=== PATIENT | female | born 1995 | race Caucasian/White ===

== ENCOUNTER 2020-03-29 04:53 | Day surgery (SDC) | payer OTHER ==
[2020-03-28 14:46] VITALS: BMI 31.6
[2020-03-29] MEDS ORDERED: PROPOFOL 20 ML ONE ×2 (12:10→13:41)
[2020-03-29] MEDS ORDERED: MIDAZOLAM HCL 2 MG/2 ML SINGLE DOSE VIAL ONE (12:10)
[2020-03-29] MEDS ORDERED: LIDOCAINE HCL 1%, 10 MG/ML (20ML VIAL) ONE (12:58)
[2020-03-29] MEDS ORDERED: ceFAZolin 2 GRAM PREMIX BAG IVPB ONE ×2 (13:18→13:24)
[2020-03-29] MEDS ORDERED: oxyCODONE HCL 5 MG TABLET PO PRN (13:27)
[2020-03-29] MEDS ORDERED: ONDANSETRON 4 MG/2 ML VIAL IVPUSH PRN (13:27)
[2020-03-29] MEDS ORDERED: LACTATED RINGERS SOLUTION 1,000 ML IV SCH (13:30)
[2020-03-29] MEDS ORDERED: DEXAMETHASONE SOD PHOSPHATE 4 MG/1 ML VIAL ONE (13:31)
[2020-03-29] MEDS ORDERED: ceFAZolin SODIUM 1 GM VIAL ONE (13:31)
[2020-03-29 16:16] VITALS: PULSE 72
[2020-03-29 18:09] VITALS: BP 110/65; TEMP 97.8
== END 2020-03-29 17:00 | disposition home or self-care (01) ==
LOC: JASU-SURG 04:53
PROVIDERS: ATTEND Surgery
PROC: 0JBD0ZZ Excision of Right Upper Arm Subcutaneous Tissue and Fascia, Open Approach (ICD-10-PCS; principal; 2020-03-29 11:00)
DX: R22.32 Localized swelling, mass and lump, left upper limb (principal)
CPT/HCPCS: 84703; 88307-TC; 94760